=== PATIENT | female | born 1955 | race Caucasian/White ===

== ENCOUNTER 2020-08-25 09:15 | Emergency (ER) | payer OTHER ==
[~2020-08-25] VITALS: Ht 160 cm; Wt 81.8 kg
[~2020-08-25 09:15] MED LIST: BACL10TA PO; CHOL10002 PO; CITA20TA19 PO; CYAN100019 PO; GUAI118S10 PO; HYDR50CA PO
[2020-08-25] MEDS ORDERED: HYDROcodone/acetaminophen 10/325mg tab PO ONE (11:20)
[2020-08-25 11:30] VITALS: BP 134/73
--- NOTE | 2020-08-25 12:39 | NUR ---
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
[2020-08-25] MEDS ORDERED: ONDA4TAB6 PO (12:40)
[2020-08-25] MEDS ORDERED: HYDR-3965 PO (12:40)
== END 2020-08-25 13:06 | disposition home or self-care (01) ==
LOC: ER 09:15
DX: S82.141A Displaced bicondylar fracture of right tibia, initial encounter for closed fracture (principal); M25.561 Pain in right knee; M25.461 Effusion, right knee; Z79.899 Other long term (current) drug therapy; W19.XXXA Unspecified fall, initial encounter; Y93.89 Activity, other specified; Y92.89 Other specified places as the place of occurrence of the external cause; Y99.8 Other external cause status
CPT/HCPCS: 29505; 73564; 73700; 99284

== ENCOUNTER 2021-10-05 10:50 | Emergency (ER) | payer OTHER ==
[~2021-10-05] VITALS: Ht 160 cm; Wt 86.4 kg
[~2021-10-05 10:50] MED LIST changes: +ONDA4TAB6 PO
[2021-10-05 10:52] VITALS: BP 171/88
[2021-10-05] MEDS ORDERED: CEPH-585 PO (12:51)
== END 2021-10-05 13:06 | disposition home or self-care (01) ==
LOC: ER 10:50
DX: L03.012 Cellulitis of left finger (principal); Z87.81 Personal history of (healed) traumatic fracture; Z79.899 Other long term (current) drug therapy; Z79.1 Long term (current) use of non-steroidal anti-inflammatories (NSAID)
CPT/HCPCS: 10060; 99283

== ENCOUNTER 2022-10-06 10:26 | Emergency (ER) | payer MEDICARE, OTHER ==
[~2022-10-06] VITALS: Ht 162.6 cm; Wt 85.6 kg
[~2022-10-06 10:26] MED LIST changes: +CEPH-585 PO
--- NOTE | 2022-10-06 10:29 | NUR ---
APPROX ONSET GRADUAL SATURDAY SHARP PAIN R RIB INTERMIT. STAYED ON SATURDAY ENDORSES CLEAR FOAMY COUGH. PAIN CONSTINUES NOW BILATERAL RIB PAIN GREATER L THAN R. NO CHANGE TO URINE PATTERN X2 DIARREAH EPISODES YESTERDAY. PO DECREASED "I FEEL LIKE IT'S GETTING STUCK" PT POINTS TO EPIGASTRIC REGION ASSOCIATED W/NAUSEA.
[2022-10-06 10:34] VITALS: TEMP 97.6
[2022-10-06 11:24] VITALS: BP 134/71; PULSE 71; RESP 18; O2SAT 95
[2022-10-06] MEDS ORDERED: AMOX-117 PO (12:15)
== END 2022-10-06 12:35 | disposition home or self-care (01) ==
LOC: ER 10:28
DX: J40 Bronchitis, not specified as acute or chronic (principal); J32.9 Chronic sinusitis, unspecified; Z79.899 Other long term (current) drug therapy
CPT/HCPCS: 71046; 99283